=== PATIENT | male | born 1960 | race Caucasian/White ===

== ENCOUNTER 2016-10-20 12:54 | Outpatient (CLI) | payer BC | END 2016-10-20 12:55 | disposition home or self-care (01) | DX: K43.9 Ventral hernia without obstruction or gangrene (principal) ==

== ENCOUNTER 2017-01-16 14:39 | Emergency (ER) | payer BC, OTHER ==
[2017-01-16 14:50] VITALS: BP 125/83
[2017-01-16] MEDS ORDERED: MORPHINE 10 MG/ML VIAL IM STA (15:17)
[2017-01-16] MEDS ORDERED: MORPHINE 10 MG/ML VIAL ONE (15:18)
--- NOTE | 2017-01-16 15:22 | ED Physician Documentation ---
PD HPI Fall - Stated complaint Stated Complaint: FALL,R FLANK PX - Chief complaint Chief Complaint: General - History obtained from History obtained from: Patient - History of Present Illness Mechanism of injury: Tripped Fall distance: Standing position Where injury occurred: Home Timing - onset: How many hours ago (2) Injury(ies) location: Chest (R chest wall, mid axillary line) Pain level max: 7 Pain level now: 5 Quality of pain: Pain, Throbbing, Aching, Dull Associated symptoms: Paresthesias (tingling intermittently to the R arm). No: LOC, AMS, Amnesia, Seizures, Ear drainage, Nasal drainage, Neck pain, Weakness, Dyspnea, Nausea / vomiting, Hematemesis, Abdominal distension Symptoms improve with: Rest Worsens with: Movement, Palpation Contributing factors: No: Anticoagulated, Intoxicated Recently seen: Not recently seen - Additional information Additional information: Was working in the [employer], slipped and fell through the sheet rock, landed on the trusses on his right side and arm. Review of Systems Ten Systems: 10 systems reviewed and negative Constitutional: denies: Fever, Chills Eyes: denies: Decreased vision, Photophobia Ears: denies: Ear pain Nose: denies: Rhinorrhea / runny nose, Congestion GI: denies: Abdominal Pain, Nausea, Vomiting, Diarrhea Skin: denies: Rash Musculoskeletal: denies: Neck pain, Back pain Neurologic: denies: Focal weakness, Headache, Head injury, LOC PD PAST MEDICAL HISTORY - Past Medical History Past Medical History: Yes Endocrine/Autoimmune: Other GI: Diverticulitis - Past Surgical History Past Surgical History: Yes General: Other - Present Medications Home Medications: Ambulatory Orders Medication Instructions Recorded Confirmed Cyclobenzaprine [Flexeril] 10 mg PO TID PRN #20 tablet 01/16/17 Methotrexate 2.5 mg PO 01/16/17 Oxycodone HCl/Acetaminophen 1 - 2 each PO Q6H PRN #14 tablet 01/16/17 [Percocet 5-325 mg Tablet] - Allergies Allergies/Adverse Reactions: Allergies Allergy/AdvReac Type Severity Reaction Status Date / Time No Known Drug Allergies Allergy Verified 01/24/14 08:24 - Social History Does the pt smoke?: No Smoking Status: Never smoker Does the pt drink ETOH?: Yes Does the pt have substance abuse?: No PD ED PE NORMAL - Vitals Vital signs reviewed: Yes - General General: Alert and oriented X 3, No acute distress, Well developed/nourished - HEENT HEENT: PERRL, Moist mucous membranes - Neck Neck: Supple, no meningeal sign, No bony TTP - Cardiac Cardiac: RRR, Strong equal pulses - Respiratory Respiratory: No respiratory distress, Clear bilaterally, Other (Tender to palpation over the right ribs in the mid axillary line, approximately ribs 5 through 12. No crepitus. No ecchymosis. No subcutaneous emphysema) - Abdomen Abdomen: Soft, Non tender, Non distended, Other (Ostomy in place) - Back Back: No spinal TTP - Derm Derm: Warm and dry - Extremities Extremities: No deformity, No tenderness to palpate, Normal ROM s pain, No edema - Neuro Neuro: Alert and oriented X 3, arborist 2-12 intact, No motor deficit, No sensory deficit, Normal speech - Psych Psych: Normal mood, Normal affect Results - Vitals Vitals: Vital Signs - 24 hr 01/16/17 14:45 Temperature 36.7 C Heart Rate 64 Respiratory 14 Rate Blood Pressure 125/83 H O2 Saturation 97 Oxygen O2 Source Room air - Rads (name of study) Right ribs with chest x-ray Radiology: Prelim report reviewed, EMP read contemporaneously, See rad report ( No acute cardiopulmonary or bony abnormality) PD MEDICAL DECISION MAKING - ED course Complexity details: reviewed results, re-evaluated patient, considered differential, d/w patient, d/w family ED course: Patient is a 56-year-old male who suffered contusions versus minor fractures on the right sided ribs. Pain well controlled here. He is very well-appearing, nontoxic. No hypoxia. No pneumothorax or hemothorax. The tingling to the arm has mostly resolved. Likely a slight neuropraxia. Patient and family counseled regarding signs and symptoms for which I believe and urgent re- evaluation would be necessary. Patient with good understanding of and agreement to plan and is comfortable going home at this time This document was made in part using voice recognition software. While efforts are made to proofread this document, sound alike and grammatical errors may occur. No head or neck injury Departure - Departure Disposition: 01 Home, Self Care Clinical Impression: Contusion of rib on right side Qualifiers: Encounter type: initial encounter Qualified Code(s): S20.211A - Contusion of right front wall of thorax, initial encounter Condition: Good Instructions: ED Contusion Vs Minor Fx Rib Follow-Up: Silvio Cho MD [Primary Care Provider] - Within 1 week Prescriptions: Cyclobenzaprine [Flexeril] 10 mg PO TID PRN #20 tablet PRN Reason: Spasms Oxycodone HCl/Acetaminophen [Percocet 5-325 mg Tablet] 1 - 2 each PO Q6H PRN # 14 tablet PRN Reason: pain Comments: Return if you worsen. Your x-rays do not show any fractures today, however sometimes small rib fractures can be missed on x-ray. This should improve over the next few days to weeks. Do not drink alcohol or drive while on narcotic pain medicine. Note that many narcotic pain relievers also contain tylenol/acetaminophen. Please ensure that your total dose of acetaminophen from all sources does not exceed 3 grams (3000mg) per day. You may constipated on this medication, take a stool softener such as "Colace" twice a day while you are on it. Also recommend a [id number] laxative such as senna or MiraLAX any day that you do not have a bowel movement. If you received narcotic pain medication in the emergency department, do not drive or operate machinery for the next 24 hours. Your blood pressure was elevated today on check in to the emergency department. This does not mean that you have hypertension, it is a common phenomenon to check into the emergency department and have elevated blood pressure. I recommend that you see your primary care physician within the week to have it rechecked when you're feeling better. Discharge Date/Time: 01/16/17 16:37
[2017-01-16] MEDS ORDERED: KETOROLAC 60 MG/2 ML VIAL IM STA (16:01)
--- NOTE | 2017-01-16 16:05 | XRAY Preliminary Report ---
Exam: XR Ribs w/PA Chest RT IMPRESSION: No acute cardiopulmonary or bony abnormality. [facility] SITE ID: [id number]
--- NOTE | 2017-01-16 16:08 | XRAY Report ---
EXAM: RIGHT RIB RADIOGRAPHY EXAM DATE: 01/16/2017 03:51 PM. CLINICAL HISTORY: Fall through [facility], right rib pain. COMPARISON: None. TECHNIQUE: 1 View of the chest and 4 views of the right ribs. FINDINGS: Bones: A radiopaque marker overlies the right anterolateral eighth rib. Old fracture deformity of the right anterolateral seventh rib. No acute fracture or bone lesion. Lungs: No focal opacities are evident. No pleural effusion or pneumothorax. Mediastinum: Normal cardiomediastinal contour. IMPRESSION: No acute cardiopulmonary or bony abnormality. [facility] Referring Provider Line: [phone] SITE ID: [id number]
[2017-01-16] MEDS ORDERED: KETOROLAC 60 MG/2 ML VIAL ONE (16:12)
== END 2017-01-16 16:37 | disposition home or self-care (01) ==
LOC: ED 14:39
DX: S20.211A Contusion of right front wall of thorax, initial encounter (principal); W13.3XXA Fall through floor, initial encounter; Y93.89 Activity, other specified; Y92.008 Other place in unspecified non-institutional (private) residence as the place of occurrence of the external cause; R20.2 Paresthesia of skin; R03.0 Elevated blood-pressure reading, without diagnosis of hypertension
CPT/HCPCS: 96372; 99283

== ENCOUNTER 2017-03-19 08:45 | Outpatient (CLI) | payer OTHER ==
[2017-03-19 11:43] LABS: BASOPHILS % (AUTO) 0.8 %; EOSINOPHILS # (AUTO) 0.1 10^3/uL (0.0-0.7); EOSINOPHILS % (AUTO) 2.1 %; HCT - HEMATOCRIT 43.4 % (42.0-52.0); HGB - HEMOGLOBIN 14.7 g/dL (14.0-18.0); MEAN CORPUSCULAR HEMOGLOBIN 29.4 pg (27.0-31.0); MEAN CORPUSCULAR HGB CONC 33.7 g/dL (32.0-36.0); MEAN CORPUSCULAR VOLUME 87.2 fL (80.0-94.0); MEAN PLATELET VOLUME 10.2 fL (7.4-11.4); MONOCYTES # (AUTO) 0.7 10^3/uL (0.0-1.0); MONOCYTES % (AUTO) 11.1 %; NEUTROPHILS # (AUTO) 3.1 10^3/uL (1.5-6.6); NUCLEATED RED BLOOD CELLS AUTO 0.1 /100WBC; RED BLOOD COUNT 4.98 10^6/uL (4.70-6.10); RED CELL DISTRIBUTION WIDTH 12.8 % (12.0-15.0); UNCORRECTED WHITE BLOOD COUNT 5.9 x10^3/uL; WHITE BLOOD COUNT 5.9 x10^3/uL (4.8-10.8)
[2017-03-19 12:00] LABS: ALBUMIN/GLOBULIN RATIO 1.6 (1.0-2.2); BUN - BLOOD UREA NITROGEN 16 mg/dL (6-20); CALCIUM 9.2 mg/dL (8.5-10.3); CARBON DIOXIDE - CO2 24 mmol/L (21-32); CHLORIDE 106 mmol/L (101-111); GFR - MDRD 77 (>89); GLUCOSE 94 mg/dL (70-100); POTASSIUM 4.1 mmol/L (3.5-5.0); SODIUM 137 mmol/L (135-145); TOTAL PROTEIN 6.8 g/dL (6.7-8.2)
== END 2017-03-19 08:46 | disposition home or self-care (01) ==
LOC: LAB.F 08:45
PROVIDERS: ATTEND Internal Medicine Rheumatology
DX: M05.79 Rheumatoid arthritis with rheumatoid factor of multiple sites without organ or systems involvement (principal); Z51.81 Encounter for therapeutic drug level monitoring; Z79.899 Other long term (current) drug therapy
CPT/HCPCS: 36415; 80053; 85025; 85651; 86140